=== PATIENT | male | born 1955 | race Caucasian/White ===

== ENCOUNTER 2021-05-02 11:35 | Outpatient (CLI) | payer MEDICARE | END 2021-05-02 11:36 | disposition home or self-care (01) | LOC: BICRAD 11:35 | PROVIDERS: ATTEND Specialist | DX: M25.512 Pain in left shoulder (principal) ==

== ENCOUNTER 2022-03-24 12:24 | Outpatient (CLI) | payer MEDICARE | END 2022-03-24 12:25 | disposition home or self-care (01) | LOC: BICMRI 12:24 | PROVIDERS: ATTEND Nurse Practitioner Family | DX: M50.122 Cervical disc disorder at C5-C6 level with radiculopathy (principal) | CPT/HCPCS: 72141 ==

== ENCOUNTER 2022-05-01 09:29 | Outpatient (CLI) | payer MEDICARE ==
[2022-05-01 10:40] LABS: Hemoglobin 14.1 g/dL (13.5-17.5); Mean Corpuscular HGB CONC 32.9 g/dL (32.0-36.0); Mean Corpuscular Hemoglobin 31.8 pg (27.0-33.0); Mean Corpuscular Volume 96.8 fl (81.2-95.1); Mean Platelet Volume 9.5 fl (7.4-10.4); Platelet Count 173 10x3/uL (150-450); RBC Distribution Width 13.2 % (11.5-14.5); Red Blood Cell (RBC) Count 4.43 10x6/uL (4.32-5.72); White Blood Cell (WBC) Count 5.8 10x3/uL (3.5-10.5)
[2022-05-01 11:11] LABS: Anion Gap 14 mmol/L (10-20); BUN (Urea Nitrogen) 32 mg/dL (8.4-25.7); Calc. Creatinine Clearance 0 mL/min (70-130); Calcium 9.4 mg/dL (7.8-10.44); Carbon Dioxide 26 mmol/L (23-31); Chloride 101 mmol/L (98-107); Estimated GFR 46; Glucose 312 mg/dL (80-115); Sodium 136 mmol/L (136-145)
== END 2022-05-01 09:30 | disposition home or self-care (01) ==
LOC: LABBT 09:29
PROVIDERS: ATTEND Neurological Surgery
DX: Z01.818 Encounter for other preprocedural examination (principal); M47.812 Spondylosis without myelopathy or radiculopathy, cervical region; Z20.822 Contact with and (suspected) exposure to COVID-19
CPT/HCPCS: 80048; 85027; 87811; 93005; 93010

== ENCOUNTER 2022-05-28 13:05 | Outpatient (CLI) | payer MEDICARE ==
[2022-05-28 15:04] LABS: Hemoglobin 13.8 g/dL (13.5-17.5); Mean Corpuscular HGB CONC 33.4 g/dL (32.0-36.0); Mean Corpuscular Hemoglobin 31.7 pg (27.0-33.0); Mean Corpuscular Volume 94.9 fl (81.2-95.1); Mean Platelet Volume 10.5 fl (7.4-10.4); Platelet Count 145 10x3/uL (150-450); RBC Distribution Width 12.3 % (11.5-14.5); Red Blood Cell (RBC) Count 4.35 10x6/uL (4.32-5.72); White Blood Cell (WBC) Count 5.7 10x3/uL (3.5-10.5)
[2022-05-28 15:27] LABS: Anion Gap 14 mmol/L (10-20); BUN (Urea Nitrogen) 32 mg/dL (8.4-25.7); Calc. Creatinine Clearance 0 mL/min (70-130); Carbon Dioxide 25 mmol/L (23-31); Chloride 103 mmol/L (98-107); Estimated GFR 42; Glucose 393 mg/dL (80-115); Potassium 4.9 mmol/L (3.5-5.1); Sodium 137 mmol/L (136-145)
== END 2022-05-28 13:06 | disposition home or self-care (01) ==
LOC: LABBT 13:05
PROVIDERS: ATTEND Neurological Surgery
DX: Z01.812 Encounter for preprocedural laboratory examination (principal); M47.812 Spondylosis without myelopathy or radiculopathy, cervical region; Z20.822 Contact with and (suspected) exposure to COVID-19
CPT/HCPCS: 80048; 85027; 87811

== ENCOUNTER 2022-06-02 05:48 | Day surgery (SDC) | payer MEDICARE ==
[2022-05-01 13:23] VITALS: BMI 30.7
[2022-06-02] MEDS ORDERED: Thrombin 5000 UNITS/5 ML VIAL ONE (06:28)
[2022-06-02] MEDS ORDERED: fentaNYL Citrate/PF 100 MCG/2 ML SYRINGE ONE ×2 (06:32→06:46)
[2022-06-02] MEDS ORDERED: Sodium Chloride 0.9% 100 ML ONE ×2 (06:57→11:02)
[2022-06-02] MEDS ORDERED: CEFAZOLIN 2 GM VIAL ONE ×2 (06:57→11:02)
[2022-06-02] MEDS ORDERED: Ketorolac Tromethamine 30 MG/ML VIAL ONE (07:14)
[2022-06-02] MEDS ORDERED: Lidocaine 1% PF 5 ML VIAL ONE (07:14)
[2022-06-02] MEDS ORDERED: Ondansetron PF 4 MG/2 ML Vial ONE (07:14)
[2022-06-02] MEDS ORDERED: Dexamethasone 20 MG/5 ML VIAL ONE (07:14)
[2022-06-02] MEDS ORDERED: Rocuronium Bromide 10 MG/ML (10ML VIAL) ONE (07:14)
[2022-06-02] MEDS ORDERED: PROPOFOL 200 MG/20 ML VIAL ONE (07:14)
[2022-06-02] MEDS ORDERED: Phenylephrine 10 MG/ML VIAL ONE (07:14)
[2022-06-02] MEDS ORDERED: SUGAMMADEX SODIUM 200 MG/2 ML VIAL ONE (08:17)
[2022-06-02] MEDS ORDERED: Tamsulosin HCl 0.4 MG CAP ONE (08:36)
[2022-06-02] MEDS ORDERED: Fentanyl 100 MCG/2 ML VIAL ONE (08:39)
[2022-06-02] MEDS ORDERED: HYDROcodone/Acetaminophen 5/325 mg Tablet ONE (09:57)
[2022-06-02] MEDS ORDERED: Cyclobenzaprine 10 MG TAB ONE (10:41)
== END 2022-06-02 11:40 | disposition home or self-care (01) ==
LOC: SDC 05:48
PROVIDERS: ATTEND Neurological Surgery
PROC: 0RG10A0 Fusion of Cervical Vertebral Joint with Interbody Fusion Device, Anterior Approach, Anterior Column, Open Approach (ICD-10-PCS; principal; 2022-06-02)
DX: M47.22 Other spondylosis with radiculopathy, cervical region (principal); M47.12 Other spondylosis with myelopathy, cervical region; M50.122 Cervical disc disorder at C5-C6 level with radiculopathy; M50.022 Cervical disc disorder at C5-C6 level with myelopathy; E78.5 Hyperlipidemia, unspecified; G89.29 Other chronic pain; M54.9 Dorsalgia, unspecified; M19.90 Unspecified osteoarthritis, unspecified site; I10 Essential (primary) hypertension; I25.10 Atherosclerotic heart disease of native coronary artery without angina pectoris; K21.9 Gastro-esophageal reflux disease without esophagitis; E11.42 Type 2 diabetes mellitus with diabetic polyneuropathy; E03.9 Hypothyroidism, unspecified; Z87.891 Personal history of nicotine dependence; Z79.4 Long term (current) use of insulin; Z79.84 Long term (current) use of oral hypoglycemic drugs; Z79.890 Hormone replacement therapy; Z79.899 Other long term (current) drug therapy; Z88.2 Allergy status to sulfonamides; Z95.5 Presence of coronary angioplasty implant and graft
CPT/HCPCS: 76000; C1713; J0690; J1100; J1885; J2370; J2405; J2704; J3010; J3490

== ENCOUNTER 2025-06-16 17:11 | Inpatient (IN) | payer MEDICARE ==
[~2025-06-16 17:11] MED LIST: Iopamidol-370 76% 500 ML MDV (1 ML CHARGE) ONE
[2025-06-16] MEDS ORDERED: Ondansetron PF 4 MG/2 ML Vial ONE (17:57)
[2025-06-16 18:07] LABS: #Basophils 0.05 10x3/uL (0.0-0.2); #Eosinophils 0.29 10x3/uL (0.0-0.7); #Monocytes 0.51 10x3/uL (0.11-0.59); #Neutrophils 5.53 10x3/uL (1.40-6.50); %Basophils 0.7 % (0.0-1.0); %Eosinophils 4.0 % (0.0-10.0); %Lymphocytes 12.1 % (21.0-51.0); %Monocytes 7.0 % (0.0-10.0); %Neutrophils 75.7 % (42.0-75.0); Hematocrit 42.1 % (42.0-52.0); Hemoglobin 13.8 g/dL (14.0-18.0); Mean Corpuscular Hemoglobin 28.8 pg (27.0-31.0); Mean Corpuscular Volume 87.9 fL (78.0-98.0); Platelet Count 219 10x3/uL (130-400); Red Blood Cell (RBC) Count 4.79 mill/uL (4.70-6.10); White Blood Cell (WBC) Count 7.30 10x3/uL (4.8-10.8)
[2025-06-16 18:33] LABS: ALT (SGPT) 246 U/L (Less than 45); AST (SGOT) 201 U/L (11-34); Albumin 3.4 g/dL (3.1-4.5); Alkaline Phosphatase 880 U/L (40-110); Anion Gap 15 mmol/L (10-20); BUN (Urea Nitrogen) 37 mg/dL (8.4-25.7); Bilirubin, Total 2.7 mg/dL (0.3-1.2); Calc. Creatinine Clearance 0 mL/min (70-130); Calcium 9.1 mg/dL (7.8-10.44); Carbon Dioxide 25 mmol/L (23-31); Chloride 100 mmol/L (98-107); Globulin 3.9 g/dL (2.4-3.5); Glucose 302 mg/dL (80-115); Lipase 191 U/L (8-78); Potassium 4.2 mmol/L (3.5-5.1); Sodium 136 mmol/L (136-145)
[2025-06-16] MEDS ORDERED: Acetaminophen 325 MG TAB PO PRN (21:00)
[2025-06-16] MEDS ORDERED: Methocarbamol 1 GM in Sodium Chloride 0.9% 100 ML IVPB PRN (21:47)
[2025-06-16] MEDS ORDERED: Glucagon 1 MG/ML KIT IM PRN (21:54)
[2025-06-16 23:09] VITALS: BMI 27.7
[2025-06-16] MEDS: hydrALAZINE 20 MG/ML VIAL SLOW IVP SCH (23:50)
[2025-06-17] MEDS: diphenhydrAMINE 50 MG/ML VIAL IVP SCH ×2 (02:07→16:24)
[2025-06-17 03:11] LABS: #Basophils Less than 0.03 10x3/uL (0.0-0.2); #Eosinophils 0.05 10x3/uL (0.0-0.7); #Monocytes 0.81 10x3/uL (0.11-0.59); #Neutrophils 9.03 10x3/uL (1.40-6.50); %Basophils 0.2 % (0.0-1.0); %Eosinophils 0.5 % (0.0-10.0); %Lymphocytes 4.9 % (21.0-51.0); %Monocytes 7.7 % (0.0-10.0); %Neutrophils 86.3 % (42.0-75.0); Hematocrit 38.5 % (42.0-52.0); Hemoglobin 12.4 g/dL (14.0-18.0); Mean Corpuscular Hemoglobin 29.3 pg (27.0-31.0); Mean Corpuscular Volume 91.0 fL (78.0-98.0); Platelet Count 199 10x3/uL (130-400); Red Blood Cell (RBC) Count 4.23 mill/uL (4.70-6.10); White Blood Cell (WBC) Count 10.46 10x3/uL (4.8-10.8)
[2025-06-17 03:58] LABS: ALT (SGPT) 215 U/L (Less than 45); AST (SGOT) 154 U/L (11-34); Albumin 3.0 g/dL (3.1-4.5); Alkaline Phosphatase 742 U/L (40-110); Anion Gap 12 mmol/L (10-20); BUN (Urea Nitrogen) 33 mg/dL (8.4-25.7); Bilirubin, Total 3.7 mg/dL (0.3-1.2); Calc. Creatinine Clearance 40 mL/min (70-130); Calcium 8.5 mg/dL (7.8-10.44); Carbon Dioxide 23 mmol/L (23-31); Chloride 105 mmol/L (98-107); Globulin 3.4 g/dL (2.4-3.5); Glucose 225 mg/dL (80-115); Lipase 66 U/L (8-78); Potassium 4.6 mmol/L (3.5-5.1); Sodium 135 mmol/L (136-145)
[2025-06-17] MEDS: Ondansetron PF 4 MG/2 ML Vial IVP PRN (04:59)
[2025-06-17] MEDS: Famotidine 20 MG TAB PO SCH (07:59)
[2025-06-17] MEDS ORDERED: PROPOFOL 20 ML ONE (09:23)
[2025-06-17] MEDS ORDERED: Rocuronium Bromide 10 MG/ML (10ML VIAL) ONE (09:28)
[2025-06-17] MEDS ORDERED: PHENYLEPHRINE-NS 100 MCG/ML 10 ML SYRINGE ONE (09:28)
[2025-06-17] MEDS ORDERED: Famotidine/PF 20 mg/2ml Vial ONE (09:31)
[2025-06-17] MEDS ORDERED: SUGAMMADEX SODIUM 200 MG/2 ML VIAL ONE (10:00)
[2025-06-17] MEDS ORDERED: Ondansetron PF 4 MG/2 ML Vial ONE (10:00)
[2025-06-17] MEDS ORDERED: hydrALAZINE 20 MG/ML VIAL ONE (11:07)
[2025-06-17] MEDS: diphenhydrAMINE 25 MG CAP PO PRN (13:36)
[2025-06-17] MEDS: Rosuvastatin 20 MG TAB PO SCH (19:47)
[2025-06-17] MEDS: Melatonin 3 MG TAB PO SCH (20:32)
[2025-06-17] MEDS ORDERED: Non-Formulary Item 1 EACH (Insulin Glargine,Hum.Rec.Anlog [Toujeo Solostar] 300 UNIT/ML I SQ SCH (21:00)
[2025-06-18] MEDS: Dextrose 50% Abboject 50 ML SYRINGE SLOW IVP PRN (00:36)
[2025-06-18 06:18] LABS: #Basophils Less than 0.03 10x3/uL (0.0-0.2); #Eosinophils 0.10 10x3/uL (0.0-0.7); #Monocytes 0.46 10x3/uL (0.11-0.59); #Neutrophils 4.84 10x3/uL (1.40-6.50); %Basophils 0.3 % (0.0-1.0); %Eosinophils 1.7 % (0.0-10.0); %Lymphocytes 9.5 % (21.0-51.0); %Monocytes 7.6 % (0.0-10.0); %Neutrophils 80.4 % (42.0-75.0); Hematocrit 38.9 % (42.0-52.0); Hemoglobin 12.4 g/dL (14.0-18.0); Mean Corpuscular Hemoglobin 29.0 pg (27.0-31.0); Mean Corpuscular Volume 90.9 fL (78.0-98.0); Platelet Count 194 10x3/uL (130-400); Red Blood Cell (RBC) Count 4.28 mill/uL (4.70-6.10); White Blood Cell (WBC) Count 6.02 10x3/uL (4.8-10.8)
[2025-06-18 06:30] LABS: ALT (SGPT) 150 U/L (Less than 45); AST (SGOT) 86 U/L (11-34); Albumin 2.6 g/dL (3.1-4.5); Alkaline Phosphatase 660 U/L (40-110); Anion Gap 16 mmol/L (10-20); BUN (Urea Nitrogen) 23 mg/dL (8.4-25.7); Bilirubin, Total 6.5 mg/dL (0.3-1.2); Calc. Creatinine Clearance 42 mL/min (70-130); Calcium 8.0 mg/dL (7.8-10.44); Carbon Dioxide 21 mmol/L (23-31); Chloride 106 mmol/L (98-107); Globulin 3.2 g/dL (2.4-3.5); Glucose 219 mg/dL (80-115); Potassium 4.2 mmol/L (3.5-5.1); Sodium 139 mmol/L (136-145)
[2025-06-18] MEDS ORDERED: Non-Formulary Item 1 EACH (Rosuvastatin Calcium [Rosuvastatin Calcium] 40 MG Tablet) PO SCH (09:00)
[2025-06-18] MEDS ORDERED: ESOMEPRAZOLE MAGNESIUM 40 MG PO SCH (09:00)
[2025-06-18] MEDS ORDERED: Non-Formulary Item 1 EACH (Oxybutynin Chloride [Oxybutynin Chloride Er] 10 MG Tab.Er.24) PO SCH (09:00)
[2025-06-18] MEDS ORDERED: Non-Formulary Item 1 EACH (Levothyroxine Sodium [Levothyroxine Sodium] 50 MCG Capsule) PO SCH (09:00)
[2025-06-18] MEDS: BuPROPion XL 150 MG ER.TAB PO SCH (10:18)
[2025-06-18] MEDS: DULoxetine 30 MG CAP PO SCH (10:18)
[2025-06-18] MEDS: Pantoprazole 40 MG DR.TAB PO SCH (10:18)
[2025-06-18] MEDS ORDERED: diphenhydrAMINE 25 MG CAP PO PRN (10:24)
[2025-06-18] MEDS: Carvedilol 6.25 MG TAB PO SCH (12:54)
[2025-06-18] MEDS: Amoxicillin/Potassium Clav 875 MG TAB PO SCH (17:14)
[2025-06-18 17:40] VITALS: BP 163/83; TEMP 97.7
[2025-06-18] MEDS ORDERED: Insulin Glargine 30 UNITS/0.3 ML VIAL SC SCH (21:00)
[2025-06-18] MEDS ORDERED: Carvedilol 6.25 MG TAB PO SCH (21:00)
== END 2025-06-18 17:45 | disposition home or self-care (01) | DRG 445 ==
LOC: ERS 17:11 → SURG A 21:38 → OBSVTOIN 06-17 15:14
PROVIDERS: ADMIT Internal Medicine; ATTEND Family Medicine
PROC: 0F798ZZ Dilation of Common Bile Duct, Via Natural or Artificial Opening Endoscopic (ICD-10-PCS; principal; 2025-06-17)
PROC: 0FC78ZZ Extirpation of Matter from Common Hepatic Duct, Via Natural or Artificial Opening Endoscopic (ICD-10-PCS; principal; 2025-06-17)
PROC: 0F778ZZ Dilation of Common Hepatic Duct, Via Natural or Artificial Opening Endoscopic (ICD-10-PCS; principal; 2025-06-17)
PROC: BF131ZZ Fluoroscopy of Gallbladder and Bile Ducts using Low Osmolar Contrast (ICD-10-PCS; principal; 2025-06-17)
DX: K80.30 Calculus of bile duct with cholangitis, unspecified, without obstruction (principal); N17.9 Acute kidney failure, unspecified; K57.10 Diverticulosis of small intestine without perforation or abscess without bleeding; I25.10 Atherosclerotic heart disease of native coronary artery without angina pectoris; N18.9 Chronic kidney disease, unspecified; E11.22 Type 2 diabetes mellitus with diabetic chronic kidney disease; I12.9 Hypertensive chronic kidney disease with stage 1 through stage 4 chronic kidney disease, or unspecified chronic kidney disease; Z90.49 Acquired absence of other specified parts of digestive tract; R74.8 Abnormal levels of other serum enzymes; Z95.5 Presence of coronary angioplasty implant and graft; Z88.2 Allergy status to sulfonamides; Z79.899 Other long term (current) drug therapy
CPT/HCPCS: 36415; 36416; 71045; 74177; 74330; 80053; 83690; 84484; 85025; 93005; 96365; 96367; 96374; 96375; 96376; G0378; J0360; J1200; J1308; J1815; J2270; J2405; J2543; J2704; J3010; J7030; J7042; J7120; J7999; Q9967

== ENCOUNTER 2025-10-31 03:45 | Emergency (ER) | payer MEDICARE ==
[2025-10-31] MEDS ORDERED: HYDROcodone/Acetaminophen 5/325 mg Tablet ONE (04:20)
[2025-10-31] MEDS ORDERED: predniSONE 20 MG TAB ONE (04:20)
== END 2025-10-31 07:25 | disposition home or self-care (01) ==
LOC: ERS 03:45
DX: M54.31 Sciatica, right side (principal)
CPT/HCPCS: 99283; J7512